=== PATIENT | male | born 1960 | race Caucasian/White ===

== ENCOUNTER 2022-05-03 15:45 | Inpatient (IN) | payer OTHER, BC ==
[~2022-05-03] VITALS: Ht 175.3 cm; Wt 87.2 kg
[2022-05-03 15:55] VITALS: BP_SYST 173
--- NOTE | 2022-05-03 16:00 | NUR ---
Patient to ER bed 01 to gown for evaluation. Side rails up. Report given to PETER Krishnan.
--- NOTE | 2022-05-03 16:35 | NUR ---
Pt BIB EMS due to weakness to right side. Per pt sx started aprox 11am w/ decreased sensation and ability to move / control right arm. Pt noted to have slight facial droop at this time. Family at bedside, teaching and plan of care discussed. Will continue to monitor.
--- NOTE | 2022-05-03 16:36 | NUR ---
TELE NEURO REQUESTED PER DR. YAN
[2022-05-03 16:43] LABS: BASOPHILS % (AUTO) 0.5 % (0.0-2.0); EOSINOPHILS % (AUTO) 0.1 % (0.0-4.0); HEMATOCRIT 39.7 % (36-54); HEMOGLOBIN 13.3 g/dL (14.0-18.0); LYMPHOCYTES # (AUTO) 0.8 K/uL (1.0-5.5); LYMPHOCYTES % (AUTO) 8.1 % (20.5-51.5); MEAN CORPUSCULAR HEMOGLOBIN 27 pg (27-31); MEAN CORPUSCULAR HGB CONC 33 % (32-36); MEAN CORPUSCULAR VOLUME 82 fL (79.0-98.0); MONOCYTES # (AUTO) 0.4 K/uL (0.0-1.0); MONOCYTES % (AUTO) 4.3 % (1.7-9.3); NEUTROPHILS # (AUTO) 8.7 K/uL (1.8-7.7); PLATELET COUNT (AUTO) 232 K/uL (130-430); RED BLOOD CELL COUNT(AUTO) 4.83 MIL/uL (4.2-6.2)
[2022-05-03] MEDS ORDERED: iohexoL 350 mgI/mL, 100 ML INFUS..BTL IV ONE (16:43)
[2022-05-03] MEDS ORDERED: LOSA100T3 PO (16:44)
[2022-05-03] MEDS ORDERED: ALFU10TA10 PO (16:45)
[2022-05-03] MEDS ORDERED: OMEP40CA20 PO (16:45)
[2022-05-03] MEDS ORDERED: NOR10 PO (16:47)
[2022-05-03] MEDS ORDERED: PRAV20TA59 PO (16:47)
[2022-05-03] MEDS ORDERED: FENO160 PO (16:48)
[2022-05-03] MEDS ORDERED: ASPI-1077 PO (16:49)
[2022-05-03] MEDS ORDERED: [UNRECOGNIZED DRUG - OTHER] PO (16:50)
[2022-05-03 17:01] LABS: ANION GAP 11 (5-15); CALCIUM 9.6 mg/dL (8.4-11.0); CHLORIDE 107 mmol/L (98-107); CREATININE 1.09 mg/dL (0.55-1.30); GLUCOSE 121 mg/dL (70-99); SODIUM SERUM 142 mmol/L (136-145); UREA NITROGEN, BLOOD 19 mg/dL (8-21)
[2022-05-03 17:10] LABS: ALANINE AMINOTRANSFERASE 50 U/L (12-78); ALBUMIN 3.9 g/dL (3.4-4.8); ASPARTATE AMINOTRANSFERASE 24 U/L (10-37)
[2022-05-03 17:17] LABS: GFR AFRICAN AMERICAN 88 mL/min (>90)
[2022-05-03 17:23] LABS: TOTAL BILIRUBIN 0.2 mg/dL (0.0-1.0)
--- NOTE | 2022-05-03 18:00 | NUR ---
Note [email or web address] in ED - 05/03/22 at 1924 by [id number] Admit bed requested Patient will be admitted to care of . Admitted to unit. Diagnosis Inpatient (Yes or No) Observation (Yes or No) Orientation concerns or request close to nursing station (Yes or No) Covid Status On vent or bipap Isolation requirements Needs a sitter From Home (Yes or if No enter name of facility) Requires Dialysis (Yes or No) Med Rec Completed (Yes of No)
--- NOTE | 2022-05-03 19:19 | NUR ---
report given to Mireya GREEN
--- NOTE | 2022-05-03 19:24 | NUR ---
Admit bed requested Patient will be admitted to care of . Admitted to Tele unit. Diagnosis CVA symptoms Inpatient (Yes or No) Yes Observation (Yes or No) No Orientation concerns or request close to nursing station (Yes or No) No Covid Status Neg On vent or bipap No Isolation requirements No Needs a sitter No From Home (Yes or if No enter name of facility) Yes Requires Dialysis (Yes or No) No Med Rec Completed (Yes of No) Yes
[2022-05-03] MEDS ORDERED: DIPHENHYDRAMINE INJ 50 MG/ML VIAL ONE (19:26)
[2022-05-03] MEDS ORDERED: ONDANSETRON HCL 4 MG/2 ML VIAL ONE (19:27)
--- NOTE | 2022-05-03 19:27 | NUR ---
report given to Mireya GREEN
[2022-05-03 20:35] VITALS: BP_SYST 150
--- NOTE | 2022-05-03 20:45 | NUR ---
RECEIVED REPORT ON PATIENT FROM ER NURSE, PETER HODGE, ASSUMED CARE, AND STARTED ASSESSMENT. ADMISSION WAS PERFORMED BY PETER ELKINS. SWALLOW ASSESSMENT WAS PERFORMED BY THIS DEMOGRAPHIC ANALYST AND THE PATIENT PASSED WITHOUT ANY PROBLEMS. WILL CONTINUE TO MONITOR AND ASSESS FOR SAFETY AND COMFORT.
[2022-05-04 01:35] VITALS: BP_SYST 142
--- NOTE | 2022-05-04 05:09 | NUR ---
CONSULTATION PAGED/CALLED Reason for Consultation: CVA SYMPTOMS Person Who was Notified: DR DANIELLE VIA TEXT Consulting Physician: LOLIS Knitting Machine Operator Automatic Specialty: Ordering Physician: Nico WELLS
--- NOTE | 2022-05-04 05:38 | NUR ---
SWALLOW EVAL CONSULTATION PAGED/CALLED Reason for Consultation: SWALLOW EVAL Person Who was Notified: VOICE MAIL Consulting Physician: Ship'S Master Specialty: Ordering Physician: RUSSELL
--- NOTE | 2022-05-04 05:47 | NUR ---
CONSULTATION PAGED/CALLED Reason for Consultation: CVA SYMPTOMS Person Who was Notified: DR Amado WELLS VIA TEXT Consulting Physician: Amado WELLS Consulting Sales Executive Specialty: Ordering Physician: Nico WELLS
[2022-05-04] MEDS ORDERED: NALOXONE HCL 0.4 MG/ML AMP (NARCAN) IVP PRN ×2 (06:30)
[2022-05-04] MEDS ORDERED: ACETAMINOPHEN 325 MG TABLET PO PRN ×2 (06:30→08:00)
[2022-05-04] MEDS ORDERED: HYDROcodone/ACETAMIN 10-325 MG TAB PO PRN (06:30)
[2022-05-04] MEDS ORDERED: HYDROcodone/ACETAMIN 5-325 MG TAB (NORCO/ VICODIN) PO PRN (06:30)
[2022-05-04] MEDS ORDERED: ONDANSETRON HCL 4 MG/2 ML VIAL IVP PRN (06:30)
--- NOTE | 2022-05-04 07:20 | NUR ---
REPORT GIVEN TO PETER KAUFMAN, AND CARE WAS TURNED OVER TO HIM.
[2022-05-04 07:34] LABS: BASOPHILS % (AUTO) 0.7 % (0.0-2.0); EOSINOPHILS # (AUTO) 0.1 K/uL (0.0-0.4); EOSINOPHILS % (AUTO) 1.4 % (0.0-4.0); HEMATOCRIT 38.9 % (36-54); HEMOGLOBIN 13.1 g/dL (14.0-18.0); LYMPHOCYTES # (AUTO) 1.7 K/uL (1.0-5.5); LYMPHOCYTES % (AUTO) 25.5 % (20.5-51.5); MEAN CORPUSCULAR HEMOGLOBIN 28 pg (27-31); MEAN CORPUSCULAR HGB CONC 34 % (32-36); MEAN CORPUSCULAR VOLUME 82 fL (79.0-98.0); MONOCYTES # (AUTO) 0.6 K/uL (0.0-1.0); MONOCYTES % (AUTO) 9.1 % (1.7-9.3); NEUTROPHILS # (AUTO) 4.2 K/uL (1.8-7.7); NEUTROPHILS % (AUTO) 63.3 % (40.0-70.0); PLATELET COUNT (AUTO) 231 K/uL (130-430); RED BLOOD CELL COUNT(AUTO) 4.74 MIL/uL (4.2-6.2); WHITE BLOOD COUNT (AUTO) 6.7 K/uL (4.8-10.8)
--- NOTE | 2022-05-04 08:09 | NUR ---
PHYSICAL THERAPY EVALUATION INDICATES NORMAL/INDEPENDENT FUNCTIONAL MOBILITY. HE IS SAFE TO AMBULATE WITH NURSING SUPERVISION. NO NEED FOR FURTHER PHYSICAL THERAPY.
--- NOTE | 2022-05-04 08:44 | NUR ---
Opening note: Report received from PETER Ureña for continuity of care. Patient stable condition. No distress noted. Will continue to monitor. On iso precautions. Addendum: 05/04/22 at 0846 by Tom Moreno RN RN Opening note: Report received from PETER Ureña for continuity of care. Patient stable condition. No distress noted. Will continue to monitor.
[2022-05-04 08:55] LABS: ALBUMIN 3.4 g/dL (3.4-4.8); CALCIUM 9.1 mg/dL (8.4-11.0); CREATININE 0.96 mg/dL (0.55-1.30); PHOSPHORUS 2.9 mg/dL (2.7-4.5); POTASSIUM 4.1 mmol/L (3.5-5.1); THYROID STIMULATING HORMONE 2.35 uIu/mL (0.36-3.74); TOTAL BILIRUBIN 0.3 mg/dL (0.0-1.0)
[2022-05-04] MEDS ORDERED: NON-FORMULARY MEDICATION (Alfuzosin Hcl 10 MG) PO SCH (09:00)
[2022-05-04] MEDS ORDERED: OMEPRAZOLE Non-Formulary 20 MG CAPSULE.DR PO SCH (09:00)
[2022-05-04] MEDS ORDERED: EZETIMIBE 10 MG TABLET PO SCH (09:00)
[2022-05-04] MEDS ORDERED: ASPIRIN 81 MG TAB.CHEW PO SCH (09:00)
[2022-05-04] MEDS ORDERED: amLODIPine BESYLATE 5 MG TABLET PO SCH (09:00)
[2022-05-04] MEDS ORDERED: PANTOPRAZOLE SODIUM 40 MG TAB PO SCH (09:00)
[2022-05-04] MEDS ORDERED: FENOFIBRATE 160 MG TABLET PO SCH (09:00)
[2022-05-04] MEDS ORDERED: LOSARTAN POTASSIUM 50 MG TABLET (COZAAR) PO SCH (09:00)
--- NOTE | 2022-05-04 10:50 | NUR ---
Report given to PETER Del Toro for continuity of care. Patient stable condition.
[2022-05-04] MEDS ORDERED: NORMAL SALINE 5 ML DISP.SYRIN IVF SCH ×2 (14:00)
--- NOTE | 2022-05-04 16:34 | NUR ---
ST EVALUATION COMPLETED. ST TX NOT INDICATED AT THIS TIME. RECOMMEND PO DIET OF REGULAR TEXTURE AND THIN LIQUIDS. RECOMMEND DISTANT SUPERVISION AND FULL ASPIRATION PRECAUTIONS.
--- NOTE | 2022-05-04 19:24 | NUR ---
RECEIVED REPORT ON PATIENT FROM PETER POP, ASSUMED CARE, AND STARTED ASSESSMENT.
--- NOTE | 2022-05-04 20:28 | NUR ---
PATIENT'S FAMILY WAS DISGRUNTLED WITH THE CARE, AND ENCOURAGED HIM TO SIGN OUT AMA. HE WAS ESCORTED TO THE PARKING LOT VIA WHEELCHAIR AND ASSISTED INTO HIS DAUGHTER'S CAR WITHOUT INCIDENT. HE TOOK WITH HIM ALL OF HIS BELONGINGS AND POSSESSIONS.
[2022-05-04] MEDS ORDERED: ATORVASTATIN 10 MG TABLET PO SCH (21:00)
[2022-05-04] MEDS ORDERED: PRAVASTATIN SODIUM 20 MG TABLET (PRAVACHOL) PO SCH (21:00)
--- NOTE | 2022-05-04 23:30 | NUR ---
PAGED PAGED DOCTOR GERTRUDIS REGARDING AMA BUT NO CALL BACK
== END 2022-05-04 20:25 | disposition left against medical advice (07) | DRG 66 ==
LOC: SED 15:45 → STU 17:41
PROVIDERS: ADMIT Specialist; ATTEND Specialist
DX: I63.81 Other cerebral infarction due to occlusion or stenosis of small artery (principal); I10 Essential (primary) hypertension; I48.91 Unspecified atrial fibrillation; E78.5 Hyperlipidemia, unspecified; Z20.822 Contact with and (suspected) exposure to COVID-19; I25.10 Atherosclerotic heart disease of native coronary artery without angina pectoris; K21.9 Gastro-esophageal reflux disease without esophagitis; Z79.01 Long term (current) use of anticoagulants; Z86.73 Personal history of transient ischemic attack (TIA), and cerebral infarction without residual deficits; Z79.899 Other long term (current) drug therapy; Z88.0 Allergy status to penicillin; Z53.29 Procedure and treatment not carried out because of patient's decision for other reasons; R53.1 Weakness
CPT/HCPCS: 36415; 70450-TC; 70496; 70498; 71045; 76376; 80053; 80061; 83735; 84100; 84443; 84484; 85025; 92610-GN; 93005; 93306; 99291; 99292; G0378; J1200; J2405; Q9967